=== PATIENT | male | born 1990 | race Caucasian/White ===

== ENCOUNTER 2022-06-15 15:20 | Emergency (ER) | payer OTHER, SELFPAY ==
[2022-06-15 15:23] VITALS: BP 177/93; PULSE 80; RESP 14; TEMP 36.4; O2SAT 100
[2022-06-15 15:56] LABS: Basophils Percent Auto 0.3 % (0.2-1.2); Eosinophils Absolute Auto 0.1 K/mm3 (0-0.3); Eosinophils Percent Auto 0.8 % (0-4.4); Hematocrit 25.4 % (42.0-52.0); Immature Granulocyte Absolute 0.04 K/mm3 (0.00-0.031); Immature Granulocyte Percent A 0.6 % (0-0.5); Immature Platelet Fraction Pct 6.4 % (0.9-11.2); Lymphocytes Absolute Auto 1.05 K/mm3 (0.9-3.2); Lymphocytes Percent Auto 16.6 % (18.3-44.2); Mean Corpuscular HGB Conc 27.6 g/dl (32-36); Mean Corpuscular Hemoglobin 22.7 pg (26-34); Mean Corpuscular Volume 82.5 fl (80-100); Mean Platelet Volume 10.7 fl (7.4-10.4); Monocytes Absolute Auto 0.5 K/mm3 (0.1-0.6); Monocytes Percent Auto 7.4 % (2.6-8.5); Neutrophils Absolute Auto 4.7 K/mm3 (1.3-6.7); Neutrophils Percent Auto 74.3 % (45.5-73.1); Platelet Count Result 191 k/mm3 (150-375); Red Blood Count 3.08 M/mm3 (4.6-6.20); Red Cell Distribution Width 26.5 % (11.5-14.5); White Blood Count 6.3 K/mm3 (4.5-10.0)
[2022-06-15 16:06] LABS: Alanine Aminotransferase 18 U/L (6-50); Albumin Level 4.6 g/dL (3.5-5.1); Alkaline Phosphatase 51 U/L (38-126); Anion Gap 12 mmol/L (8-16); Aspartate Amino Transferase 27 U/L (17-59); Bilirubin,Total 0.3 mg/dL (0.2-1.3); Blood Urea Nitrogen 9 mg/dL (9-20); Calcium 8.8 mg/dL (8.4-10.2); Carbon Dioxide 23 mmol/L (22-30); Chloride 104 mmol/L (98-107); Estimated CRCL calculation 124 ml/min; Estimated Glomerular Filt Rate > 60; Glucose 124 mg/dL (65-110); Potassium 3.5 mmol/L (3.4-5.0); Sodium 139 mmol/L (137-145)
[2022-06-15 16:14] LABS: INR 1.1; Partial Thromboplastin Time 25.5 SECONDS (22.3-36.8); Prothrombin Time 13.9 Seconds (11.1-14.7)
[2022-06-15 16:27] LABS: Hypochromasia 1+ (NORMAL); Platelet Estimate Adequate (Adequate); Schistocytes None Seen (NORMAL)
[2022-06-15 16:28] LABS: Anisocytosis 3+ (NORMAL)
--- NOTE | 2022-06-15 17:19 | ED.GENADULT ---
HPI - General Adult General Chief complaint: GI Bleed Stated complaint: sob with exertion, hx anemia Time Seen by Provider: 06/15/22 16:54 Source: patient Mode of arrival: ambulatory Limitations: no limitations History of Present Illness HPI narrative: Patient is a 32 y/o male who presents to the ED with c/o SOB and lightheadedness. Patient reports a history of bleeding hemorrhoids in 2017 at which point he required blood transfusion due to acute blood loss anemia. He had a colonoscopy performed at that time, in addition to a GI and hematology work-up in [place]. He was told anytime he begins having bleeding from his hemorrhoids, he was advised to take iron pills. Patient reports 1 month ago he had another episode of bleeding hemorrhoids for about 2 weeks, every time he used the restroom. He states he had more bleeding than usual at that time. He began taking iron pills. He has not seen any bright red blood over the last 2 weeks. However, over the last 1 week he has been mildly short of breath with exertion and began feeling somewhat lightheaded today, which prompted his presentation. He denies any abdominal pain, nausea, vomiting, chest pain, cough, cold symptoms, fevers, BLE pain or edema. Review of Systems Review of Systems: CONSTITUTIONAL: Denies fever, chills, or sweats. ENT: Denies rhinorrhea, congestion, sore throat. CARDIOVASCULAR: Denies chest pain, palpitations, or edema. RESPIRATORY: See HPI. GASTROINTESTINAL: See HPI. GENITOURINARY: Denies dysuria or hematuria. NEUROLOGICAL: See HPI. All systems reviewed & are unremarkable except as noted in HPI and below PMFSH Past Medical History Medical History (Updated 06/16/22 @ 02:46 by Veronika Salgado PA-C) Anemia Hemorrhoids Surgical History Surgical History (Updated 06/15/22 @ 17:23 by Veronika Salgado PA-C) History of colonoscopy Social History Social History (Updated 06/15/22 @ 17:23 by Veronika Salgado PA-C) Smoking status: Never smoker Exam Narrative: GENERAL: Well appearing, well-nourished, non-toxic, in no acute distress. HEAD: Normocephalic, atraumatic. NECK: Supple. No adenopathy, no masses. RESPIRATORY: Airway patent, respirations nonlabored. Clear to auscultation bilaterally, no rales, rhonchi, wheezing. CARDIOVASCULAR: Regular rate and rhythm without murmurs, rubs, or gallops. Radial pulses 2+ and equal bilaterally. ABDOMINAL: Soft, nontender, nondistended, no hepatosplenomegaly. Normoactive BS. RECTAL: Normal rectal tone. No external hemorrhoids noted. No significant internal hemorrhoids palpated with MARILY. Stool brown, guaiac negative. MUSCULOSKELETAL: Moves all extremities. Strength/ROM intact without gross deformities. No edema. SKIN: Warm, dry, normal color. No rashes. NEURO: A&O X3. Speech clear. Cranial nerves II-XII grossly intact. Steady gait. No ataxic movements. PSYCHIATRIC: Appropriate mood and affect. Normal interaction. Course Vital Signs Vital signs: Vital Signs Temperature 97.5 F L 06/15/22 15:23 Pulse Rate 80 06/15/22 15:23 Respiratory Rate 14 06/15/22 15:23 Blood Pressure 177/93 H 06/15/22 15:23 Pulse Oximetry 100 06/15/22 15:23 Oxygen Delivery Room Air 06/15/22 15:23 Temperature 88 F L 06/15/22 20:21 Pulse Rate 104 H 06/15/22 22:15 Respiratory Rate 20 06/15/22 22:15 Blood Pressure 122/72 06/15/22 22:15 Pulse Oximetry 98 06/15/22 22:15 Oxygen Delivery Room Air 06/15/22 15:23 Medical Decision Making MDM Narrative Medical decision making narrative: Patient presented to ED with report of mild SOB, lightheadedness, history of anemia from bleeding hemorrhoids. Based on patient's description, sounds like he has internal hemorrhoids that occasionally prolapse and bleed. Denies pain with bowel movements. Denies any bleeding over the last 2 weeks. Rectal exam performed here guaiac negative. Patient without any respiratory distress or abdominal tenderness on exam. CB
--- NOTE | 2022-06-15 17:21 | ECG_ITS ---
Measurements Intervals [place] Rate: 78 P: 33 FL: 131 QRS: 38 QRSD: 92 T: 10 QT: 391 QTc: 446 Interpretive Statements SINUS RHYTHM MINIMAL Q WAVES- ANTEROLAT/HIGH LAT LEADS BORDERLINE ECG NO PREVIOUS ECG AVAILABLE FOR COMPARISON Electronically Signed On 06-15-2022 20:29:54 JAVA TECHNICAL ARCHITECT by Akbar Richardson D.O.
[2022-06-15] MEDS: TUBING, BLOOD PLUM PUMP TUBING 1 EACH XX (19:03)
[2022-06-15 19:04] VITALS: BP 139/79; PULSE 79; RESP 18; TEMP 37.1; O2SAT 100
[2022-06-15 19:21] VITALS: BP 124/76; PULSE 82; RESP 16; TEMP 37.1; O2SAT 98
[2022-06-15 20:21] VITALS: BP 127/76; PULSE 68; RESP 16; TEMP 31.1; O2SAT 100
[2022-06-15] MEDS: SODIUM CHLORIDE 0.9% IV 250 ML 30 ML IV CONT (20:52)
[2022-06-15 22:15] VITALS: BP 122/72; PULSE 104; RESP 20; O2SAT 98
== END 2022-06-15 23:48 | disposition home or self-care (01) ==
PROVIDERS: Emergency Medicine; Emergency Provider Physician Assistant
DX: D64.9 Anemia, unspecified (principal); R94.31 Abnormal electrocardiogram [ECG] [EKG]
CPT/HCPCS: 36415; 36430; 80053; 85025; 85055; 85610; 85730; 86850; 86900; 86901; 86923; 93005; 96360; 96361; 99285; J7050; P9016

== ENCOUNTER 2022-08-21 01:40 | Day surgery (SDC) | payer OTHER, SELFPAY ==
[2022-08-10 13:40] VITALS: BMI 28.4
--- NOTE | 2022-08-21 09:19 | P.PNAN_ITS ---
Anes - Initial Pre Proc Eval Procedure: Operation Date: 08/21/22 13:00 Proposed Procedures p Esophagogastroduodenoscopy & Colonoscopy - David Moe MD s Possible [facility] Hemorrhoid Treatment - David Moe MD Date/Time: 08/21/22 09:19 Surgeon: David Moe MD Pre Op Diagnosis: POLLO, Hematochezia, Melena, Hemorrhoids Patient Data Age: 32 Gender: M Height: 1.83 m Weight: 95 kg Allergies Allergy/AdvReac Type Severity Reaction Status Date / Time pollen Allergy Intermediate Congested Uncoded 08/21/22 11:47 Home Medications Medication Instructions Recorded Confirmed Type ferrous sulfate 325 mg (65 mg 325 mg PO BID 06/22/22 08/21/22 History iron) tablet Patient hx anesthesia problems: none Family hx anesthesia problems: none Results Review: All pre-operative results and documents have been reviewed as part of the pre- operative evaluation. [facility] Past Medical History Medical History (Updated 07/17/22 @ 11:13 by Ava Blake APRN) Anemia Hematochezia Hemorrhoids POLLO (iron deficiency anemia) Surgical History Surgical History (Updated 06/22/22 @ 15:39 by CULLEN Ayers) History of colonoscopy Hx of wisdom tooth extraction Family History Family History Mother Diabetes mellitus Grandparent Diabetes mellitus Social History Social History Smoking status: Never smoker Alcohol intake: current Drinks per week: 3 Alcohol use details: occasional Substance use type: does not use Lack of Transportation: No Lack of Food: Never True Current Housing: I Have Housing Concerned About Future Housing: No Difficulty Paying Gas/Electric Bills: No Difficulty Paying for Meds: No Currently Unemployed: No Education: Bachelor's Degree Difficulty w/ Childcare or Family Care: No Living arrangements: with family Spiritual care concerns: No Anes - Eval Final PreProcedure Day of Procedure 08/21/22 09:19 Patient weight: overweight Heart: regular rate and rhythm Lungs: clear to auscultation Airway: Mallampati scale class II Neurological: alert and oriented Last oral intake: >/= 8 hours ASA classification: II Emergent: no Anesthetic plan: proceed Anesthesia type and monitoring: general GIVS and standard monitoring Results Review: All pre-operative results and documents have been reviewed as part of the pre- operative evaluation. Informed Consent: The patient's anesthetic plan and its attendant risks and benefits were discussed with the patient/family/POA. Questions were solicited and answers provided to the satisfaction of the patient/family/POA.
[2022-08-21 11:49] VITALS: BP 141/84; PULSE 65; RESP 16; TEMP 36.4; O2SAT 100; BMI 28.7
--- NOTE | 2022-08-21 11:51 | SUR.PREOP ---
Patient no longer having EGD done, consents done for IRC and Colonoscopy only.
[2022-08-21] MEDS: LACTATED RINGERS 1,000 ML 150 ML IV CONT (11:59)
--- NOTE | 2022-08-21 12:02 | PM.HPGS ---
History of Present Illness History of Present Illness Consent: Risks, benefits, and alternatives have been discussed and questions answered. Patient agrees to proceed with procedure. Chief complaint: POLLO, Hematochezia, Melena, Hemorrhoids Narrative: Jordy Brown is a 32 year old male with previous history of anemia, last egd and colonoscopy 2017 with hemorrhoids, recently again with rectal bleeding. Review of Systems Constitutional: Constitutional: Denies headache(s) and Denies weakness Eyes: Eyes: Denies blurry vision ENT: Reports Normal hearing present, Denies headache(s) and Denies neck pain Cardiovascular: Cardiovascular: Denies chest pain and Denies dyspnea Respiratory: Respiratory: Denies dyspnea Gastrointestinal: Gastrointestinal: Reports no additional gastrointestinal complaints Genitourinary: Genitourinary: Denies dysuria Musculoskeletal: Musculoskeletal: Denies neck pain Integumentary/Breasts: Skin/Breast: Denies dry skin Neurologic: Reports Normal hearing present, Denies headache(s) and Denies weakness Psychiatric: Psychiatric: Denies anxiety Endocrine: Endocrine: Denies change in body appearance Hematologic/Lymphatic: Hematologic/Lymphatic: Denies easy bleeding Allergic/Immunologic: Allergic/Immunologic: Denies urticaria PMFSH Past Medical History Medical History (Updated 07/17/22 @ 11:13 by Ava Blake APRN) Anemia Hematochezia Hemorrhoids POLLO (iron deficiency anemia) Surgical History Surgical History (Updated 06/22/22 @ 15:39 by CULLEN Ayers) History of colonoscopy Hx of wisdom tooth extraction Family History Family History Mother Diabetes mellitus Grandparent Diabetes mellitus Social History Social History Smoking status: Never smoker Alcohol intake: current Drinks per week: 3 Alcohol use details: occasional Substance use type: does not use Lack of Transportation: No Lack of Food: Never True Current Housing: I Have Housing Concerned About Future Housing: No Difficulty Paying Gas/Electric Bills: No Difficulty Paying for Meds: No Currently Unemployed: No Education: Bachelor's Degree Difficulty w/ Childcare or Family Care: No Living arrangements: with family Spiritual care concerns: No Meds Home Medications and Allergies Home Medications Medication Instructions Recorded Confirmed Type ferrous sulfate 325 mg (65 mg 325 mg PO BID 06/22/22 08/21/22 History iron) tablet Allergies Allergy/AdvReac Type Severity Reaction Status Date / Time pollen Allergy Intermediate Congested Uncoded 08/21/22 11:47 Vital Signs Vital Signs - 24 hr 08/21/22 11:49 Temperature 97.6 F Pulse Rate 65 Respiratory Rate 16 Blood Pressure 141/84 H Pulse Oximetry 100 Oxygen Delivery Room Air Exam Const: General: comfortable and no acute distress HENMT: Face/Nose/Sinus: Normal nares present Eyes: General: appearance normal, both eyes and all related structures Neck: Neck: no JVD Resp: Auscultation: clear to auscultation bilaterally Cardio: Rate: regular rate Rhythm: regular rhythm GI: Inspection: non-distended GI Palp: Yes Soft to palpation Skin: General skin exam: normal color Neuro: General: gait normal Speech: normal speech Extrem: General: normal to inspection Psych: Mental Status: mental status grossly normal Assessment and Plan Assessment and plan (1) Hematochezia: Code(s): K92.1 - Melena Status: Acute Assessment and Plan: will assess with colonoscopy if internal hemorrhoids will treat with irc (2) POLLO (iron deficiency anemia): Code(s): D50.9 - Iron deficiency anemia, unspecified Status: Acute (3) Hemorrhoids: Code(s): K64.9 - Unspecified hemorrhoids Status: Acute
--- NOTE | 2022-08-21 12:24 | W.PM.PROC2 ---
Procedure Note - Detailed Date of Procedure 08/21/22 Pre-op Diagnosis Hematochezia, Hemorrhoids Post-op Diagnosis Same Procedure Performed IRC of internal hemorrhoids Surgeon David Moe MD Anesthesia MAC (also had colonoscopy) Description of Procedure anoscopy found grade II internal hemorrhoids, no lesions, no fissure, no bleeding. Then advanced IRC probe and hemorrhoids treated at 1.5 seconds x5 Complications No immediate complications
[2022-08-21 12:25] VITALS: BP 108/69; PULSE 60; RESP 16; O2SAT 98
[2022-08-21 12:35] VITALS: BP 103/71; PULSE 61; RESP 18; O2SAT 98
[2022-08-21 12:45] VITALS: BP 121/80; PULSE 60; RESP 21; O2SAT 100
== END 2022-08-21 13:00 | disposition home or self-care (01) ==
PROVIDERS: PCP Nurse Practitioner; Visit Provider Internal Medicine Gastroenterology
PROC: 0DJD8ZZ Inspection of Lower Intestinal Tract, Via Natural or Artificial Opening Endoscopic (ICD-10-PCS; CPT 45378; principal; 2022-08-21 13:00)
PROC: (CPT 46930; 2022-08-21 13:00)
DX: K92.1 Melena (principal); D50.9 Iron deficiency anemia, unspecified; K64.8 Other hemorrhoids
CPT/HCPCS: 45378; 46930; J2704; J7120

== ENCOUNTER 2024-02-06 11:00 | Emergency (ER) | payer OTHER, SELFPAY ==
--- NOTE | ~2024-02-06 | CT_ITS ---
Non-contrast CT scan of the Abdomen and Pelvis Clinical indication: Renal stone Technique: 2.5 mm axial scans were obtained through the abdomen and pelvis without intravenous or or al contrast. Dose reduction technique was used on this scan by utilizing automated exposure control a nd iterative reconstruction technique. The dose-length product (DLP) was 839.53 mGy-cm. Findings: Images through the lung bases reveal no abnormalities. There is a 4 mm stone at the distal left ureter (axial image 141), with mild left hydroureteronephros is to this level. No right renal or right ureteral stone. No right hydronephrosis. The liver, spleen, pancreas, gallbladder, and adrenals appear normal. There is no aortic aneurysm. There is no evidence of bowel obstruction. Images through the pelvis were performed. There is no evidence of ascites or lymphadenopathy. Urinary bladder unremarkable. No pelvic mass. Impression: 4 mm distal left ureteral stone with mild left hydroureteronephrosis to the level of the stone. Reviewed, dictated and finalized at [facility]. Impression: 4 mm distal left ureteral stone with mild left hydroureteronephrosis to the lev el of the stone.
[2024-02-06 11:01] VITALS: BP 166/85; PULSE 70; RESP 20; TEMP 36.4; O2SAT 100
[2024-02-06] MEDS: ONDANSETRON INJ 4 MG/2 ML VIAL IV PUSH (12:02)
[2024-02-06] MEDS: HYDROmorphone HCL INJ (*CRX) 1 MG/ML SYR IV PUSH ×3 (12:02→14:14)
[2024-02-06] MEDS: SODIUM CHLORIDE 0.9% IV 1,000 ML 999 ML IV CONT (12:02)
[2024-02-06 12:05] LABS: Basophils Percent Auto 0.4 % (0.2-1.2); Eosinophils Absolute Auto 0.1 K/mm3 (0-0.3); Eosinophils Percent Auto 0.7 % (0-4.4); Hematocrit 40.8 % (42.0-52.0); Hemoglobin 13.7 g/dL (14.0-18.0); Immature Granulocyte Absolute 0.02 K/mm3 (0.00-0.031); Immature Granulocyte Percent A 0.3 % (0-0.5); Lymphocytes Absolute Auto 0.97 K/mm3 (0.9-3.2); Lymphocytes Percent Auto 13.8 % (18.3-44.2); Mean Corpuscular HGB Conc 33.6 g/dl (32-36); Mean Corpuscular Hemoglobin 28.5 pg (26-34); Mean Corpuscular Volume 84.8 fl (80-100); Mean Platelet Volume 10.5 fl (7.4-10.4); Monocytes Absolute Auto 0.5 K/mm3 (0.1-0.6); Monocytes Percent Auto 7.4 % (2.6-8.5); Neutrophils Absolute Auto 5.5 K/mm3 (1.3-6.7); Neutrophils Percent Auto 77.4 % (45.5-73.1); Platelet Count Result 214 k/mm3 (150-375); Red Blood Count 4.81 M/mm3 (4.6-6.20); Red Cell Distribution Width 14.3 % (11.5-14.5); White Blood Count 7.1 K/mm3 (4.5-10.0)
[2024-02-06 12:24] LABS: Alkaline Phosphatase 66 U/L (38-126); Anion Gap 19 mmol/L (4-12); Aspartate Amino Transferase 36 U/L (17-59); Bilirubin,Total 0.9 mg/dL (0.2-1.3); Blood Urea Nitrogen 17 mg/dL (9-20); Calcium 9.6 mg/dL (8.4-10.2); Carbon Dioxide 15 mmol/L (22-30); Chloride 102 mmol/L (98-107); Estimated CRCL calculation 110 ml/min; Estimated Glomerular Filt Rate > 60; Glucose 194 mg/dL (65-110); Potassium 3.5 mmol/L (3.4-5.0); Sodium 136 mmol/L (137-145)
--- NOTE | 2024-02-06 12:26 | ED.GENADULT ---
HPI - General Adult General Chief complaint: Back Pain/Injury Stated complaint: left flank pain Time Seen by Provider: 02/06/24 11:56 History of Present Illness HPI narrative: Patient is a 33-year-old gentleman who presents emergency department with chief complaint of left flank pain. Patient reports pain started this morning reports that it was sudden onset reports that the argument be comfortable in any position. Patient reports no fever does report that it feels as though he can not have a bowel movement reports that he took a laxative trying to help have a bowel movement. The patient reports no prior history of kidney stones Related Data Home Medications Medication Instructions Recorded Confirmed ferrous sulfate 325 mg (65 mg 325 mg PO BID 06/22/22 08/21/22 iron) tablet Allergies Allergy/AdvReac Type Severity Reaction Status Date / Time pollen Allergy Intermediate Congested Uncoded 08/21/22 11:47 Review of Systems Review of Systems: A 10 system review of systems was completed on the patient and is negative except for what is stated in the HPI. Nursing and ancillary documentation was reviewed. [facility] Past Medical History Medical History Anemia Hematochezia Hemorrhoids POLLO (iron deficiency anemia) Surgical History Surgical History History of colonoscopy Hx of wisdom tooth extraction Family History Family History Mother Diabetes mellitus Grandparent Diabetes mellitus Social History Social History Smoking status: Never smoker Alcohol intake: current Drinks per week: 3 Alcohol use details: occasional Substance use type: does not use Lack of Transportation: No Lack of Food: Never True Current Housing: I Have Housing Concerned About Future Housing: No Difficulty Paying Gas/Electric Bills: No Difficulty Paying for Meds: No Currently Unemployed: No Education: Bachelor's Degree Difficulty w/ Childcare or Family Care: No Living arrangements: with family Spiritual care concerns: No Exam Narrative: GENERAL: Well-appearing, well-nourished, in acute pain distress moving around uncomfortable. HEAD: Normocephalic, atraumatic. EYES: PERRLA and EOMI. ENT: Nares clear, no rhinorrhea or epistaxis. Mucous membranes moist. NECK: Supple. CHEST: Clear to auscultation. No respiratory distress. HEART: Regular rate and rhythm. No murmur heard. Normal peripheral pulses. ABDOMEN: Soft, nontender, nondistended, normal active bowel sounds. EXTREMITIES: Normal range of motion. No edema. SKIN: Warm, dry, no rash. NEURO: No focal deficits. Alert and oriented x3. PSYCH: Normal mood and affect. Course Vital Signs Vital signs: Vital Signs Temperature 36.4 C 02/06/24 11:01 Pulse Rate 70 02/06/24 11:01 Respiratory Rate 20 02/06/24 11:01 Blood Pressure 166/85 H 02/06/24 11:01 Pulse Oximetry 100 02/06/24 11:01 Oxygen Delivery Room Air 02/06/24 11:01 Temperature 36.4 C 02/06/24 11:01 Pulse Rate 70 02/06/24 11:01 Respiratory Rate 20 02/06/24 11:01 Blood Pressure 166/85 H 02/06/24 11:01 Pulse Oximetry 100 02/06/24 11:01 Oxygen Delivery Room Air 02/06/24 11:01 Medical Decision Making Vital Signs Vital Signs: Vital Signs Temperature 36.4 C 02/06/24 11:01 Pulse Rate 70 02/06/24 11:01 Respiratory Rate 20 02/06/24 11:01 Blood Pressure 166/85 H 02/06/24 11:01 Pulse Oximetry 100 02/06/24 11:01 Oxygen Delivery Room Air 02/06/24 11:01 Temperature 36.4 C 02/06/24 11:01 Pulse Rate 70 02/06/24 11:01 Respiratory Rate 20 02/06/24 11:01 Blood Pressure 166/85 H 02/06/24 11:01 Pulse Oximetry 100 02/06/24 11:01 Oxygen Delivery Room Air 02/06/24 11:01
[2024-02-06 12:32] LABS: Alanine Aminotransferase 27 U/L (6-50)
[2024-02-06 12:36] LABS: Add Urine Microscopic? YES; Appearance Urine Clear (Clear); Bacteria Urine None Seen /hpf; Bilirubin Urine Negative (Negative); Blood Urine 1+ (Negative); Color Urine Yellow (Yellow); Glucose Urine UA Trace mg/dL (Negative); Ketones Urine 4+ mg/dL (Negative); Leukocyte Esterase Ur Negative LEU/UL (Negative); Nitrate Urine Negative (Negative); Protein Urine 1+ mg/dL (Negative); RBC Urine 21-50 /hpf (0-2); Squamous Epithelial Cell Urine None Seen /hpf (Few); pH Urine 7.5 (5.0-9.0)
--- NOTE | 2024-02-06 12:41 | PC.NURSE ---
Pt ambulated to bathroom to independently. Pt states he felt like he needed to have a BM. Moderate amount of bright red blood in the toilet and on the floor. Pt states this happens frequently. He was previously diagnosed with a large internal hemorrhoid that I just push back in.
[2024-02-06] MEDS: PROCHLORPERAZINE EDISYLATE 10 MG/2 ML VIAL IV PUSH (13:00)
[2024-02-06] MEDS: TAMSULOSIN HCL 0.4 MG CAPSULE PO (14:23)
[2024-02-06 15:09] VITALS: BP 145/72; PULSE 87; RESP 16; O2SAT 100
== END 2024-02-06 15:18 | disposition home or self-care (01) ==
PROVIDERS: Emergency Provider Emergency Medicine; PCP Nurse Practitioner
DX: N20.1 Calculus of ureter (principal); D50.9 Iron deficiency anemia, unspecified
CPT/HCPCS: 36415; 74176; 80053; 81001; 85025; 87086; 96361; 96374; 96375; 96376; 99284; A9270; J0780; J1170; J2405; J7030

== ENCOUNTER 2024-02-09 09:54 | Emergency (ER) | payer OTHER, SELFPAY ==
--- NOTE | ~2024-02-09 | XR_ITS ---
EXAMINATION: XR abdomen/kub 1V DATE: 02/09/2024 12:14 INDICATION: Left flank pain. Recent nephrolithiasis. TECHNIQUE: A supine view of the abdomen on 2 radiographs was obtained. COMPARISON: CT dated 02/16/24 FINDINGS: 4 mm left ureteral stone which appears to have advanced, now projecting over the expected location of the left ureterovesicular junction. Moderate amount of colonic stool. Gas throughout multiple loops of large and small bowel without tyrese dilation to suggest obstruction and this could be related to a n ileus. IMPRESSION: 1. Advancement of a 4 mm stone now at the left ureterovesicular junction. 2. Multiple nondilated loops of gas-filled large and small bowel which could be seen with an ileus. Reviewed, dictated and finalized at location B.
[2024-02-09 10:04] VITALS: BP 155/98; PULSE 85; RESP 17; TEMP 36.7; O2SAT 100
--- NOTE | 2024-02-09 12:10 | ED.GENADULT ---
HPI - General Adult General Chief complaint: Back Pain/Injury Stated complaint: kidney stones, left flank pain Time Seen by Provider: 02/09/24 11:31 History of Present Illness HPI narrative: Patient is a 33-year-old male who presents to the ER with reports of left flank pain. Ongoing for 24 hours. Recently diagnosed with kidney stones 02/06/2024. He has been taking tamsulosin, Zofran, and Reddick. Pain returned and is unrelenting despite therapy. He has been drinking plenty of water. No fevers or chills or sweats. No blood in urine. He has not seen urology. He has been straining his urine and has not yet passed stone. Related Data Home Medications Medication Instructions Recorded Confirmed ferrous sulfate 325 mg (65 mg 325 mg PO BID 06/22/22 02/07/24 iron) tablet Allergies Allergy/AdvReac Type Severity Reaction Status Date / Time pollen Allergy Intermediate Congested Uncoded 02/07/24 17:45 Review of Systems Review of Systems: All systems reviewed & are unremarkable except as noted in HPI and below Constitutional: Constitutional: Reports no additional constitutional complaints Cardiovascular: Cardiovascular: Reports no additional cardiovascular complaints Respiratory: Respiratory: Reports no additional respiratory complaints Gastrointestinal: Gastrointestinal: Reports abdominal pain, Reports nausea and Denies vomiting Genitourinary: Genitourinary: Denies oliguria, Denies penile discharge, Denies testicular pain and Denies urinary frequency [facility] Past Medical History Medical History Anemia Hematochezia Hemorrhoids POLLO (iron deficiency anemia) Surgical History Surgical History History of colonoscopy Hx of wisdom tooth extraction Family History Family History Mother Diabetes mellitus Grandparent Diabetes mellitus Social History Social History Smoking status: Never smoker Alcohol intake: current Drinks per week: 3 Alcohol use details: occasional Substance use type: does not use Lack of Transportation: No Lack of Food: Never True Current Housing: I Have Housing Concerned About Future Housing: No Difficulty Paying Gas/Electric Bills: No Difficulty Paying for Meds: No Currently Unemployed: No Education: Bachelor's Degree Difficulty w/ Childcare or Family Care: No Living arrangements: with family Spiritual care concerns: No Exam Narrative: GENERAL: Well-appearing, well-nourished, and in no acute distress. HEAD: Normocephalic, atraumatic. ENT: Mucous membranes moist. CHEST: Clear to auscultation. No respiratory distress. HEART: Regular rate and rhythm. Normal peripheral pulses. ABDOMEN: Soft, nontender, nondistended. EXTREMITIES: Normal range of motion. No edema. NEURO: Alert and oriented x3. PSYCH: Normal mood and affect. Course Course Emergency Course: Pain resolved after Toradol. Discussed with urology. Yousif for outpatient follow-up in outpatient Toradol. Vital Signs Vital signs: Vital Signs Temperature 98.1 F 02/09/24 10:04 Pulse Rate 85 02/09/24 10:04 Respiratory Rate 17 02/09/24 10:04 Blood Pressure 155/98 H 02/09/24 10:04 Pulse Oximetry 100 02/09/24 10:04 Oxygen Delivery Room Air 02/09/24 10:04 Temperature 98.1 F 02/09/24 10:04 Pulse Rate 85 02/09/24 10:04 Respiratory Rate 17 02/09/24 10:04 Blood Pressure 155/98 H 02/09/24 10:04 Pulse Oximetry 100 02/09/24 10:04 Oxygen Delivery Room Air 02/09/24 10:04 Medical Decision Making Vital Signs Vital Signs: Vital Signs Temperature 98.1 F 02/09/24 10:04 Pulse Rate 85 02/09/24 10:04 Respiratory Rate 02/09/24 10:04 Blood Pressure 155/98 H 02/09/24 10:04 Pulse Oximetry 100 02/09/24 10:04 Oxygen Del
[2024-02-09] MEDS: ONDANSETRON INJ 4 MG/2 ML VIAL IV PUSH (12:16)
[2024-02-09] MEDS: KETOROLAC 30 MG/ML VIAL (*BKC) IV PUSH (12:17)
[2024-02-09 14:34] VITALS: BP 137/72; PULSE 75; RESP 18; TEMP 37.1; O2SAT 98
== END 2024-02-09 14:39 | disposition home or self-care (01) ==
PROVIDERS: Emergency Provider Emergency Medicine; PCP Nurse Practitioner
DX: N20.1 Calculus of ureter (principal)
CPT/HCPCS: 74018; 96374; 96375; 99284; J1885; J2405